=== PATIENT | female | born 1960 | race African-American/Black ===

== ENCOUNTER 2021-03-31 08:30 | Emergency (ER) | payer MEDICARE ==
[~2021-03-31] VITALS: Ht 172.7 cm; Wt 86.2 kg
[2021-03-31] MEDS: SODIUM CHLORIDE 0.9% 1000ML 1,000 ML IV SCH ×2 (08:45→10:50)
[2021-03-31] MEDS ORDERED: SODIUM CHLORIDE 0.9% 1000ML 1,000 ML ONE (08:52)
[2021-03-31] MEDS ORDERED: SODIUM CHLORIDE 0.9% 1000ML 1,000 ML IV SCH (09:30)
[2021-03-31] MEDS ORDERED: CASIRIVIMAB/IMDEVIMAB 10 ML in SODIUM CHLORIDE 0.9% 100 ML IV ONE (12:00)
[2021-03-31] MEDS ORDERED: SODIUM CHLORIDE 0.9% 50ML 50 ML ONE (12:30)
[2021-03-31] MEDS ORDERED: IOPAMIDOL 370 MG/ML 200 ML INFUS..BTL INJ ONE (12:31)
[2021-03-31] MEDS ORDERED: TETANUS/DIPHTHERIA TOX ADULT 0.5 ML SYR ONE (14:10)
[2021-03-31] MEDS ORDERED: DEXAMETHASONE SOD PHOS INJ 4 MG/ML VIAL IV ONE (14:15)
[2021-03-31] MEDS ORDERED: AZITHROMYCIN 250 MG TAB PO SCH (15:00)
[2021-03-31] MEDS ORDERED: DEXAMETHASONE SOD PHOS INJ 4 MG/ML VIAL ONE (15:07)
[2021-03-31] MEDS ORDERED: AZITHROMYCIN 250 MG TAB ONE (15:07)
[2021-03-31] MEDS ORDERED: AZITHROMYCIN250 MG PO (16:00)
[2021-03-31] MEDS ORDERED: DEXAMETHASONE6 MG PO (16:02)
[2021-03-31 16:16] VITALS: BP 155/82
== END 2021-03-31 16:21 | disposition home or self-care (01) ==
LOC: FSED 09:12
DX: U07.1 COVID-19 (principal); I95.9 Hypotension, unspecified; E86.0 Dehydration; I10 Essential (primary) hypertension; J44.9 Chronic obstructive pulmonary disease, unspecified; M33.10 Other dermatomyositis, organ involvement unspecified
CPT/HCPCS: 36415; 71045; 71260; 80053; 82553; 82948; 84484; 85025; 87040; 87071; 87205; 93005; 99284; J1100; J7030; J7050; Q9967; U0002; 90714

== ENCOUNTER 2021-09-22 08:02 | Emergency (ER) | payer MEDICARE ==
[~2021-09-22] VITALS: Ht 172.7 cm; Wt 86.2 kg
[~2021-09-22 08:02] MED LIST: AZITHROMYCIN250 MG PO; DEXAMETHASONE6 MG PO
[2021-09-22] MEDS ORDERED: BENAZEPRIL HCL10 MG PO (09:00)
[2021-09-22] MEDS ORDERED: LEXAPRO20 MG PO (09:00)
[2021-09-22] MEDS ORDERED: PREDNISONE20 MG PO (09:00)
[2021-09-22] MEDS ORDERED: TEMAZEPAM15 MG PO (09:00)
[2021-09-22] MEDS ORDERED: AMLODIPINE BESY10 MG PO (09:00)
[2021-09-22] MEDS ORDERED: VITAMIN D3250 MC1 (09:00)
[2021-09-22] MEDS ORDERED: MULTI-VITAMIN1 EACH PO (09:00)
[2021-09-22] MEDS ORDERED: TIZANIDINE HCL4 M1 PO (09:00)
[2021-09-22] MEDS ORDERED: IOPAMIDOL 370 MG/ML 200 ML INFUS..BTL INJ ONE (09:01)
[2021-09-22] MEDS ORDERED: SODIUM CHLORIDE 0.9% 50ML 50 ML ONE (09:01)
[2021-09-22] MEDS ORDERED: SODIUM CHLORIDE 0.9% 500ML 500 ML IV ONE (09:30)
[2021-09-22] MEDS ORDERED: SODIUM CHLORIDE 0.9% 500ML 500 ML ONE (09:58)
[2021-09-22] MEDS ORDERED: ONDANSETRON ODT4 MG PO (10:15)
== END 2021-09-22 11:11 | disposition home or self-care (01) ==
LOC: FSED 08:09
DX: R07.89 Other chest pain (principal); R53.83 Other fatigue; E86.0 Dehydration; R51.9 Headache, unspecified; I10 Essential (primary) hypertension; F32.A Depression, unspecified; M79.7 Fibromyalgia; M54.9 Dorsalgia, unspecified; G89.29 Other chronic pain
CPT/HCPCS: 71045; 71260; 80053; 81003; 82553; 84484; 85025; 85379; 87400; 99284; J7040; Q9967; 93005

== ENCOUNTER 2022-01-18 12:13 | Emergency (ER) | payer MEDICARE ==
[~2022-01-18] VITALS: Ht 172.7 cm; Wt 81.9 kg
[~2022-01-18 12:13] MED LIST changes: +AMLODIPINE BESY10 MG PO; +BENAZEPRIL HCL10 MG PO; +LEXAPRO20 MG PO; +LOTREL 5-10 MG1 EACH PO; +MULTI-VITAMIN1 EACH PO; +ONDANSETRON ODT4 MG PO; +PREDNISONE20 MG PO; +PREDNISONE5 MG PO; +TEMAZEPAM15 MG PO; +TIZANIDINE HCL4 M1 PO; +VITAMIN D3 COM1 EACH PO; +VITAMIN D3250 MC1; +VITAMIN D3250 MCG PO
[2022-01-18] MEDS ORDERED: PREVACID30 M1 PO (13:36)
== END 2022-01-18 13:42 | disposition home or self-care (01) ==
LOC: FSED 12:53
DX: R10.30 Lower abdominal pain, unspecified (principal); I71.4 Abdominal aortic aneurysm, without rupture; I10 Essential (primary) hypertension; F32.A Depression, unspecified; M54.9 Dorsalgia, unspecified; G89.29 Other chronic pain; Z86.73 Personal history of transient ischemic attack (TIA), and cerebral infarction without residual deficits
CPT/HCPCS: 74176; 80048; 80076; 81003; 82270; 85025; 99284

== ENCOUNTER 2024-10-03 07:40 | Emergency (ER) | payer MEDICARE ==
[~2024-10-03] VITALS: Ht 172.7 cm; Wt 87.1 kg
[~2024-10-03 07:40] MED LIST changes: +PREVACID30 M1 PO
[2024-10-03] MEDS ORDERED: DIOVAN160 MG PO (08:03)
[2024-10-03] MEDS ORDERED: LYRICA100 MG PO ×2 (08:03)
[2024-10-03] MEDS ORDERED: ASPIRIN EC81 MG PO (08:03)
[2024-10-03] MEDS ORDERED: PRAVASTATIN SOD20 MG (08:03)
[2024-10-03] MEDS ORDERED: COMBIVENT RESPIM4 GM IH (08:03)
[2024-10-03 09:36] VITALS: TEMP 97.2
[2024-10-03] MEDS ORDERED: CLONIDINE HCL 0.1 MG TAB PO ONE (10:00)
[2024-10-03] MEDS: CLONIDINE HCL 0.1 MG TAB PO ONE (10:12)
[2024-10-03 11:10] VITALS: PULSE 67; RESP 16; O2SAT 99
[2024-10-03 11:18] VITALS: BP 147/98
[2024-10-03] MEDS: HYDRALAZINE HCL 20 MG/ML VIAL IV STA (11:18)
== END 2024-10-03 11:18 | disposition home or self-care (01) ==
LOC: FSED 07:44
DX: I10 Essential (primary) hypertension (principal); J44.9 Chronic obstructive pulmonary disease, unspecified; I25.10 Atherosclerotic heart disease of native coronary artery without angina pectoris; E78.5 Hyperlipidemia, unspecified; N28.9 Disorder of kidney and ureter, unspecified; K21.9 Gastro-esophageal reflux disease without esophagitis; M79.7 Fibromyalgia; F41.9 Anxiety disorder, unspecified; F32.A Depression, unspecified; M54.9 Dorsalgia, unspecified; G89.29 Other chronic pain; Z86.73 Personal history of transient ischemic attack (TIA), and cerebral infarction without residual deficits; Z85.41 Personal history of malignant neoplasm of cervix uteri
CPT/HCPCS: 80048; 82553; 83880; 84484; 85025; 93005; 99284